=== PATIENT | female | born 1990 | race Caucasian/White ===

== ENCOUNTER 2018-12-02 14:08 | Emergency (ER) | payer BC, OTHER ==
[~2018-12-02] VITALS: Ht 160 cm; Wt 71.4 kg
[2018-12-02 20:00] VITALS: BP 95/49
== END 2018-12-02 20:03 | disposition home or self-care (01) ==
LOC: ED 19:57
DX: G43.909 Migraine, unspecified, not intractable, without status migrainosus (principal)
CPT/HCPCS: 36415; 70450; 70551; 80048; 81025; 85025; 93005; 96374; 96375; 99284; J0780; J1200; J1885